=== PATIENT | female | born 1975 | race Caucasian/White ===

== ENCOUNTER → 2016-12-12 | Outpatient (CLI) | payer BC ==
[~2016-12-12] MED LIST: ALBU1AER9 INH; ALBUAER2 INH; FRRS300 PO; LEVOIUD; OMEP40CA PO; PRENTAB26 PO; PSEU30TA20 PO; SNG10 PO; TRIA0.1C20 TOP; ZNTT/150 PO
== END | disposition home or self-care (01) ==
LOC: C.PAPS 13:01
PROVIDERS: ATTEND Obstetrics & Gynecology
DX: Z01.419 Encounter for gynecological examination (general) (routine) without abnormal findings (principal); Z98.890 Other specified postprocedural states

== ENCOUNTER 2018-04-05 21:52 | Emergency (ER) | payer BC, OTHER ==
[~2018-04-05] VITALS: Ht 175.3 cm; Wt 95.0 kg
[~2018-04-05 21:52] MED LIST changes: +LEVO1IUD2; -LEVOIUD; +RANI150T85 PO; -ZNTT/150 PO
[2018-04-05 21:56] VITALS: TEMP 36.9; Ht 175.3 cm; Wt 95.0 kg
[2018-04-05] MEDS ORDERED: BUPRTAB51 PO (22:19)
[2018-04-05] MEDS ORDERED: IBUPROFEN 800 MG TAB PO STA (22:24)
--- NOTE | 2018-04-05 22:35 | DIAGNOSTIC IMAGING REPORT ---
RIGHT ANKLE 3 VIEWS HISTORY: right ankle pain, injury COMPARISON: None. FINDINGS: There is no fracture or dislocation. Lateral soft tissue swelling. No radiopaque foreign bodies. IMPRESSION: No fractures. Electronically signed by: Uriel Perrin M.D. 04/05/2018 10:34 PM Dictated Date/Time: 04/05/2018 10:33 PM
--- NOTE | 2018-04-05 22:49 | EMERGENCY ROOM VISIT NOTE ---
History First contact with patient: 21:59 Chief Complaint: ANKLE PAIN Stated Complaint: R ANKLE PAIN-FELL IN SHOWER History of Present Illness The patient is a 43 year old female who presents to the Emergency Room with complaints of right ankle pain. The patient reports that she was getting into the shower this evening just prior to arrival when she fell, injuring her right ankle. She reports pain in the outside of the ankle which is worse with movement or walking on the ankle. She rates her discomfort an 8/10. She states the pain is a burning sensation. She reports a feeling of tingling in her foot. She denies numbness or weakness. She does report a previous fracture to this ankle and saw [facility] for this. She denies any other injuries. She did not take any medications for her pain. Review of Systems A complete 6 point review of systems was reviewed with the patient with pertinent positives and negatives as per history of present illness. All else were negative. Past Medical/Surgical History Medical Problems: (1) ASTHMA, UNSPECIFIED (2) Cholecystectomy (3) CHOLELITH W CHOLECYS NEC (4) Idiopathic scoliosis (5) MIGRAINE UNSPECIFIED W/O INTRACTABLE MIGRAINE Family History Diabetes mellitus FH: heart disease FHx: gallbladder disease Hypertension Social History Smoking Status: Never Smoker Alcohol Use: occasionally Marital Status: Housing Status: lives with family Occupation Status: employed Current/Historical Medications Scheduled Bupropion (Wellbutrin-Xl), 300 MG PO DAILY Physical Exam Vital Signs Date Time Temp Pulse Resp B/P (MAP) Pulse Ox O2 Delivery O2 Flow Rate FiO2 04/05/18 23:01 80 18 134/92 97 04/05/18 21:56 36.9 80 18 134/92 97 Room Air Physical Exam VITALS: Vitals are noted on the nurse's note and reviewed by myself. Vital signs stable. GENERAL: This is a 43-year-old female, in no acute distress but appears to be in pain, well-developed well-nourished. SKIN: No lacerations, abrasions or ecchymosis noted. MUSCULOSKELETAL: There is moderate soft tissue swelling to the lateral right ankle. Tenderness to palpation over the lateral malleolus. No tenderness of the medial malleolus or proximal tibia/fibula. No tenderness over the foot. Dorsalis pedis pulse 2+. NEURO: Patient was alert and oriented to person place and time. Distal sensation intact. Medical Decision & Procedures ER Provider Diagnostic Interpretation: RIGHT ANKLE 3 VIEWS HISTORY: right ankle pain, injury COMPARISON: None. FINDINGS: There is no fracture or dislocation. Lateral soft tissue swelling. No radiopaque foreign bodies. IMPRESSION: No fractures. Medications Administered Medications (Trade) Dose Ordered Sig/Diandra Route Start Time Stop Time Status Last Admin Dose Admin Ibuprofen (Motrin Tab) 800 mg NOW STAT PO 04/05/18 22:24 04/05/18 22:25 DC 04/05/18 22:31 800 MG Medical Decision Differential diagnosis includes fracture, contusion, sprain, dislocation, among others. The patient was evaluated as above. X-ray of the right ankle was obtained and read by radiology with no acute fractures. Patient was placed in a gel ankle splint. She had her own crutches with her. Conservative measures were discussed. She was given ibuprofen for pain. She was advised to follow-up with orthopedics for further evaluation as needed. She verbalized understanding of my assessment and treatment plan was discharged home in good condition. Medication Reconcilliation Current Medication List: was personally reviewed by me Blood Pressure Screening Patient's blood pressure: Normal blood pressure Impression Primary Impression: Right ankle injury Departure Information Dispostion Home / Self-Care Condition GOOD Referrals Domingo Salas M.D. (PCP) Coleman Mckeon M.D. Patient Instructions My [facility] Additional Instructions You have been treated in the Emergency Department for an Ankle sprain. For pain control, you can use the following [id number] medicines (if >12 yo): - Regular strength (325mg/tab) Tylenol (acetaminophen) 2 tabs every 4-6 hours as needed. Do not exceed 12 tablets in a 24 hour period. Avoid taking more than 4 grams (4000 mg) of Tylenol per day. This includes any other sources of acetaminophen you may take on a regular basis. - Regular strength (200 mg/tab) Advil (ibuprofen) 3-4 tabs every 6 hours as needed. Do not exceed a dose of 3200 mg per day. If this is a recent injury (<24 hrs), ice can be applied to the area of pain for the first 3 days to help decrease pain and inflammation. You should also elevate the ankle to help reduce swelling. Wear the gel splint and use the crutches to keep weight off the ankle until you are able to bear weight without difficulty. If you do not notice improvement in 1 week, follow-up with orthopedics. Return to the Emergency Department if your current symptoms worsen despite treatment course outlined above, or if you develop any of the following symptoms : intractable pain despite aforementioned treatment course or new onset of numbness or tingling of the foot. Problem Qualifiers Primary Impression: Right ankle injury Encounter type: initial encounter Qualified Codes: S99.911A - Unspecified injury of right ankle, initial encounter
[2018-04-05 23:01] VITALS: BP 134/92; PULSE 80; O2SAT 97
== END 2018-04-05 23:03 | disposition home or self-care (01) ==
LOC: C.EDB 21:54 → C.EDC 23:03
DX: S99.911A Unspecified injury of right ankle, initial encounter (principal); W19.XXXA Unspecified fall, initial encounter; J45.909 Unspecified asthma, uncomplicated